=== PATIENT | male | born 1950 | race Caucasian/White ===

== ENCOUNTER 2017-10-13 23:14 | Inpatient (IN) | payer MEDICARE, OTHER ==
[~2017-10-13] VITALS: Ht 172.7 cm; Wt 110.4 kg
--- NOTE | 2017-10-13 23:23 | ED.ADGEN ---
Past History Past Medical History: Anxiety, Dementia, Depression, Hypertension, Other Past Surgical History: Other Adult General Chief Complaint Chief Complaint ".. I just woke up this way... ".. " We were up here baby setting the dogs.. while my daughter and Son in law took a weekend vacation to [place]...".. " I had a previous episode where I had very low blood pressure and slow heart rate.. I got admitted that time too.. The heart doctor started me Coumadin.. and they later changed it to Eliquis.. ".. " But I ve not had any more problems like this .. until tonight..." HPI HPI Patient is a 67 year old male who presents with above hx and complaints of confusion, bradycardia- 40-50, slurred speech and hypotension systolic 80.. Pt. had been watching TV with his and they both fell asleep on couch. noticed when she woke up the was bent over, sleeping in an "un natural position".. and could not wake him up. noted he had slurred speech when sheetrock applicator got him wake up. Pt has multiple meds which he takes for PTSD. Pt in past has followed at [facility]. Pt. does not think he messed up taking his meds or accidently took his pain meds. Pt. denies ETOH. No hx of trauma. Pt recent travel from [facility]. No specific ill contacts. Paramedics report on arrival pt was hypotensive at 80 systolic, bradycardic and had slurred speech. Blood glucose was above 100. Pt. recent traveled here from [place]. Last know well time or without slurred speech was at 2000 hrs. No hx of trauma. No changes in meds. Somewhat poor historian as to why Cardiology started him on Coumadin then Eliquis. Review of Systems Review of Systems Constitutional: Denies fever or chills [] Eyes: Denies change in visual acuity, redness, or eye pain [] HENT: Denies nasal congestion or sore throat [] Complaints of slurred speech. Respiratory: Denies cough or shortness of breath [] Cardiovascular: No additional information not addressed in HPI [] GI: Denies abdominal pain, nausea, vomiting, bloody stools or diarrhea [] : Denies dysuria or hematuria [] Musculoskeletal: Denies back pain or joint pain [] Integument: Denies rash or skin lesions [] Neurologic: Denies headache, focal weakness or sensory changes []Slurred speech complaint. Endocrine: Denies polyuria or polydipsia [] All other systems were reviewed and found to be within normal limits, except as documented in this note. Family History Family History Non-contributory Current Medications Current Medications Current Medications Medications (Trade) Dose Ordered Sig/Renard Start Time Stop Time Status Last Admin Dose Admin Aspirin (Children'S Aspirin) 324 mg 1X ONCE 10/14/17 01:00 10/14/17 01:01 DC 10/14/17 01:11 324 MG Enoxaparin Sodium (Lovenox 100mg Syringe) 100 mg 1X ONCE 10/14/17 01:00 10/14/17 01:01 DC Ondansetron HCl (Zofran) 4 mg PRN Q4HRS PRN 10/14/17 00:45 10/15/17 00:44 Potassium Chloride (KCl Oral Soln) 40 meq 1X ONCE 10/14/17 01:00 10/14/17 01:01 DC 10/14/17 01:10 40 MEQ See Nursing for home meds Allergies Allergies Allergies Coded Allergies Type Severity Reaction Last Updated Verified No Known Drug Allergies 10/14/17 No NKDA Physical Exam Physical Exam Constitutional: no acute distress, non-toxic appearance. [] HENT: Normocephalic, atraumatic, bilateral external ears normal, oropharynx moist, no oral exudates, nose normal. [] Eyes: PERRLA, EOMI, conjunctiva normal, no discharge. [] Neck: Normal range of motion, no tenderness, supple, no stridor. [] Cardiovascular:Bradycardia Heart rate regular rhythm, no murmur []Rates in 50' on monitor. Lungs & Thorax: Bilateral breath sounds clear to auscultation [] Abdomen: Bowel sounds normal, soft, no tenderness, no masses, no pulsatile masses. [] Obese. Scar Skin: Warm, dry, no erythema, no rash. [] Back: No tenderness, no CVA tenderness. [] Extremities: No tenderness, no cyanosis, no clubbing, ROM intact, no edema. [] Neurologic: Alert and oriented X 3, normal motor function, normal sensory function, no focal deficits noted. []Mild slurred speech. Psychologic: Affect normal, judgement normal, mood normal. [] Current Patient Data Vital Signs Vital Signs Date Time Temp Pulse Resp B/P (MAP) Pulse Ox O2 Delivery O2 Flow Rate FiO2 10/14/17 00:55 59 18 101/49 (66) 93 Room Air 10/13/17 23:14 98.7 Lab Results Laboratory Tests Test 10/13/17 23:30 10/13/17 23:59 White Blood Count 5.5 x10^3/uL (4.0-11.0) Red Blood Count 4.46 x10^6/uL (4.30-5.70) Hemoglobin 14.6 g/dL (13.0-17.5) Hematocrit 42.2 % (39.0-53.0) Mean Corpuscular Volume 95 fL (79-100) Mean Corpuscular Hemoglobin 33 pg (25-35) Mean Corpuscular Hemoglobin Concent 35 g/dL (31-37) Red Cell Distribution Width 13.8 % (11.5-14.5) Platelet Count 149 x10^3/uL (140-400) Neutrophils (%) (Auto) 57 % (31-73) Lymphocytes (%) (Auto) 31 % (24-48) Monocytes (%) (Auto) 10 % (0-9) H Eosinophils (%) (Auto) 2 % (0-3) Basophils (%) (Auto) 0 % (0-3) Neutrophils # (Auto) 3.1 x10^3uL (1.8-7.7) Lymphocytes # (Auto) 1.7 x10^3/uL (1.0-4.8) Monocytes # (Auto) 0.5 x10^3/uL (0.0-1.1) Eosinophils # (Auto) 0.1 x10^3/uL (0.0-0.7) Basophils # (Auto) 0.0 x10^3/uL (0.0-0.2) Erythrocyte Sedimentation Rate 2 (0-15) Prothrombin Time 11.1 SEC (9.4-11.4) Prothrombin Time INR 1.1 (0.9-1.1) PTT 23 SEC (23-33) Sodium Level 138 mmol/L (136-145) Potassium Level 3.2 mmol/L (3.5-5.1) L Chloride Level 99 mmol/L (98-107) Carbon Dioxide Level 33 mmol/L (21-32) H Anion Gap 6 (6-14) Blood Urea Nitrogen 17 mg/dL (8-26) Creatinine 1.8 mg/dL (0.7-1.3) H Estimated GFR (Cockcroft-Gault) 37.6 Glucose Level 79 mg/dL (70-99) Calcium Level 8.8 mg/dL (8.5-10.1) Magnesium Level 1.9 mg/dL (1.8-2.4) Ammonia 32 mcmol/L (11-34) Creatine Kinase 180 U/L (39-308) Creatine Kinase MB (Mass) 2.8 ng/mL (0.0-3.6) Creatine Kinase MB Relative Index 1.6 % (0-4) Troponin I Quantitative < 0.017 ng/mL (0-0.055) DE-Bdz-L-Type Natriuretic Peptide 378 pg/mL (0-124) H Lactic Acid Level 1.8 mmol/L (0.4-2.0) EKG EKG My interpretation EKG shows a sinus bradycardia 53 bpm. Has prolonged [place] interval. There is a right bundle-branch block. But no findings acute STEMI of contralateral changes.[] Radiology/Procedures Radiology/Procedures My interpretation of CT head show s no shift, mass, edema, bleed or fx. Has chronic white matter changes and atrophy. My interpretation of CXR shows cardiomegaly. Chronic changes.[] Course & Med Decision Making Course & Med Decision Making Pertinent Labs and Imaging studies reviewed. (See chart for details) Discussed presentation, testing and tx. plan with Dr. Price. Pt. to be admitted to Dr. Price - for further eval and tx. [] Final Impression Final Impression 1. Mental Status Change[]- Hx of Slurred Speech 2. Hypotension 3. Bradycardia 4. Hx. of Dementia ? Hx. - Marked Short term memory problems. 5. Hx of Sleep Apnea 6. Elevated Creat. 1,8 7. Elevated BNP 378 8. Hypokalemia Dragon Disclaimer Dragon Disclaimer This electronic medical record was generated, in whole or in part, using a voice recognition dictation system. DAVID GARCIA MD Oct 13, 2017 23:23
[2017-10-13 23:59] LABS: BASO % 0 % (0-3); EOS # 0.1 x10^3/uL (0.0-0.7); EOS % 2 % (0-3); HEMATOCRIT 42.2 % (39.0-53.0); HEMOGLOBIN 14.6 g/dL (13.0-17.5); LYMPH # 1.7 x10^3/uL (1.0-4.8); LYMPH % 31 % (24-48); MEAN CORPUSCULAR HEMOGLOBIN 33 pg (25-35); MEAN CORPUSCULAR HGB CONC 35 g/dL (31-37); MEAN CORPUSCULAR VOLUME 95 fL (79-100); MONO # 0.5 x10^3/uL (0.0-1.1); MONO % 10 % (0-9); NEUT # 3.1 x10^3uL (1.8-7.7); NEUT % 57 % (31-73); PLATELET COUNT 149 x10^3/uL (140-400); RED BLOOD COUNT 4.46 x10^6/uL (4.30-5.70); RED CELL DISTRIBUTION WIDTH 13.8 % (11.5-14.5); WHITE BLOOD COUNT 5.5 x10^3/uL (4.0-11.0)
--- NOTE | 2017-10-14 00:16 | RAD ---
RS Compliance Statement: One or more of the following individualized dose reduction techniques were utilized for this examination: 1. Automated exposure control 2. Adjustment of the mA and/or kV according to patient size 3. Use of iterative reconstruction technique CT HEAD WITHOUT CONTRAST History: Mental status change Comparison: None. Procedure: Axial images are obtained of the head from the skull base through the vertex without IV contrast. Findings: The ventricles and sulci are normal for the patient's age. No mass-effect, midline shift, hemorrhage, extra-axial fluid collection, or obvious acute infarction is identified. Basilar cisterns are patent. Bone windows demonstrate no acute calvarial abnormality. Medial deviation of the right lamina papyracea may be congenital or due to old fracture. The visualized paranasal sinuses are clear. Mastoid air cells are well aerated. IMPRESSION: No acute intracranial abnormality. Electronically signed by: Fortunato Calvillo MD (10/14/2017 12:13 AM) [facility]
[2017-10-14 00:19] LABS: CALCIUM 8.8 mg/dL (8.5-10.1); CREATININE 1.8 mg/dL (0.7-1.3); GFR 37.6; MAGNESIUM 1.9 mg/dL (1.8-2.4); POTASSIUM 3.2 mmol/L (3.5-5.1)
[2017-10-14] MEDS ORDERED: ONDANSETRON PF 4 MG/2 ML VIAL. IV PRN (00:45)
[2017-10-14 00:54] LABS: SEDIMENTATION RATE 2 (0-15)
[2017-10-14] MEDS ORDERED: ENOXAPARIN ** NOTE DOSE ** SYRINGE SQ ONE (01:00)
[2017-10-14] MEDS ORDERED: POTASSIUM CHLORIDE 20 MEQ/15 ML ORAL LIQUID. PO ONE (01:00)
[2017-10-14] MEDS ORDERED: ASPIRIN 81 MG TAB.CHEW PO ONE (01:00)
--- NOTE | 2017-10-14 01:13 | RAD ---
PORTABLE CHEST 1V Clinical Indication: Mental status change Comparison: None. Findings: The cardiomediastinal silhouette is normal. Lungs are clear. There is no pneumothorax. No pleural effusion is appreciated. No acute bone abnormality. IMPRESSION: No acute cardiopulmonary process. Electronically signed by: Fortunato Calvillo MD (10/14/2017 1:10 AM) [facility]
--- NOTE | 2017-10-14 01:15 | EKG ---
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
[2017-10-14 02:19] VITALS: BP 132/73
[2017-10-14] MEDS ORDERED: INDO25CA5 PO (03:28)
[2017-10-14] MEDS ORDERED: OXCA300T PO (03:28)
[2017-10-14] MEDS ORDERED: MEMA10TA PO (03:28)
[2017-10-14] MEDS ORDERED: SIMV40TA3 PO (03:28)
[2017-10-14] MEDS ORDERED: ALLO300T PO (03:28)
[2017-10-14] MEDS ORDERED: APIX5TAB3 PO (03:28)
[2017-10-14] MEDS ORDERED: FURO20TA3 PO (03:28)
[2017-10-14] MEDS ORDERED: CLON2TAB9 PO (03:28)
[2017-10-14] MEDS ORDERED: SULI200T2 PO (03:28)
[2017-10-14] MEDS ORDERED: FENO200C PO (03:28)
[2017-10-14] MEDS ORDERED: DOXE50CA PO (03:28)
[2017-10-14] MEDS ORDERED: METO50TA6 PO (03:28)
[2017-10-14 05:52] VITALS: BP 133/79
[2017-10-14] MEDS ORDERED: ENOXAPARIN ** NOTE DOSE ** SYRINGE SQ SCH (09:00)
--- NOTE | 2017-10-14 09:55 | CONS ---
DATE OF CONSULTATION: 10/14/2017 REASON FOR CONSULTATION: Bradycardia and syncope. HISTORY OF PRESENT ILLNESS: The patient is a 67-year-old man with presumed past medical history as noted below, is unable to provide a clear history of his medical problems, but who presented because of slurred speech and a syncopal episode. He apparently was watching TV with his and was noted to be slouched over. Upon arrival by the EMS, he had a blood pressure in the 80s systolic and heart rate in the 40s-50s. He apparently also had some slurred speech. The patient denied any preceding palpitations, orthopnea, PND, chest pain, palpitations, or any exertional dyspnea baseline. By history, he also has apparently some mild dementia, which is unclear at this time. 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 ER evaluation did not reveal any acute pathology. He was admitted for further evaluation and treatment. Neurology consultation is currently pending. PAST MEDICAL HISTORY: 1. Presumed atrial fibrillation. 2. Presumed diastolic heart failure. 3. Presumed hypertension. 4. Dyslipidemia. SOCIAL HISTORY: The patient denies any alcohol, tobacco, or illicit drug use. He is . He is here visiting from [place] for his son-in-law's mcc from the service. FAMILY HISTORY: Noncontributory. ALLERGIES: No known drug allergies. CURRENT CARDIOVASCULAR MEDICATIONS: 1. Eliquis 5 mg p.o. b.i.d. 2. Lasix 20 mg daily. 3. Metoprolol 50 mg p.o. b.i.d. 4. Simvastatin 40 mg daily. 5. Micardis 80/25 one tablet daily. REVIEW OF SYSTEMS: Negative for 10 out of 14 systems reviewed, unless otherwise mentioned above in HPI. PHYSICAL EXAMINATION: VITAL SIGNS: Afebrile, heart rate 66, blood pressure 133/79. GENERAL: He is alert and oriented, in no acute distress. HEAD AND NECK: Unremarkable. HEART: Regular rate and rhythm without murmurs, rubs, or gallops. LUNGS: Clear to auscultation bilaterally. ABDOMEN: Obese, nontender, nondistended. EXTREMITIES: No clubbing, cyanosis, or edema with 1+ dorsalis pedis and 2+ radial pulses. DIAGNOSTIC STUDIES: Hemoglobin, platelets, cardiac enzymes are negative. BNP is unremarkable. Creatinine is elevated at 1.8, but the patient does report that he does have some element of chronic kidney disease and does see somebody regularly for his kidney issues. Head CT is notable for no acute abnormalities. Chest x-ray does not have any acute pathology. EKG demonstrates sinus rhythm per report, but is not available for review. IMPRESSION: Syncope: Differential diagnosis is broad, but no obvious cardiac structural pathology is noted based on his history and physical examination. Possibilities include medication side effects and due to his bradycardia and hypotension could be precipitated by metoprolol. Arrhythmia is also a possibility. 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 Subsequent to that, we will await neurologic evaluation and we will obtain an echocardiogram tomorrow morning to rule out any significant pathology. Continue telemetry to evaluate for any arrhythmias. Hold his metoprolol. Thank you for this consultation. YOANDY SOTOMAYOR MD DR: GARRETT/nikolay JOB#: [id number] / [id number]
[2017-10-14 10:03] LABS: BARBITURATES NEG (NEG); BENZODIAZEPINES POS (NEG); CANNABINOIDS NEG (NEG); COCAINE NEG (NEG); METHADONE NEG (NEG); OPIATES NEG (NEG); PHENCYCLIDINE NEG (NEG)
[2017-10-14 10:04] LABS: AMPHETAMINE/METHAMPHETAMINE NEG (NEG)
[2017-10-14 10:09] LABS: BILIRUBIN,URINE NEG (NEG); CLARITY,URINE CLEAR; COLOR,URINE YELLOW; GLUCOSE,URINE NEG (NEG); UROBILINOGEN,URINE 1 mg/dL (0.2 mg/dL)
[2017-10-14 10:10] LABS: AMORPHOUS SEDIMENT,UR PRESENT /HPF; BACTERIA,URINE 0 /HPF (0-FEW); HYALINE CASTS, URINE OCC /HPF; NITRITE,URINE NEG (NEG); RBC,URINE RARE /HPF (0-2); SQUAMOUS EPITHELIAL CELL,UR OCC /LPF
[2017-10-14 11:00] VITALS: BP 142/81
[2017-10-14] MEDS ORDERED: METO25TA4 PO (11:11)
[2017-10-14 12:22] LABS: ALBUMIN 3.4 g/dL (3.4-5.0); ALBUMIN/GLOBULIN RATIO 1.2 (1.0-1.7); CALCIUM 8.8 mg/dL (8.5-10.1); CREATININE 1.5 mg/dL (0.7-1.3); GFR 46.4; POTASSIUM 3.7 mmol/L (3.5-5.1); TOTAL BILIRUBIN 0.4 mg/dL (0.2-1.0); TOTAL PROTEIN 6.2 g/dL (6.4-8.2); URIC ACID 5.7 mg/dL (3.5-7.2)
--- NOTE | 2017-10-14 13:12 | HP ---
ADMIT DATE: 10/14/2017 HISTORY OF PRESENT ILLNESS: The patient is a 67-year-old male patient, who came from [place], [place], coming here to visit his daughter and apparently, has had an episode, who was admitted with altered mental status. Apparently, the patient has been watching TV with his and they both fell asleep on the couch. noticed when she woke up that he was bent over sleeping in a natural position and she could not wake him up. noted that he had slurred speech when immersion metal cleaner got him wake up and has multiple medications, which he takes for posttraumatic stress disorder and normally follows at the [facility]. He does not think he messed up taking his medication or accidentally took his pain medication. He denied any alcohol intake. He denied any history of trauma. He has traveled recently from [place] with no specific ill contact. Paramedics reported on arrival that the patient was hypertensive at a systolic blood pressure of 80, bradycardic, had slurred speech, blood glucose was above 100, the last known well time without slurred speech, was at 10 o'clock. No history of trauma or change in medication. 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 PAST MEDICAL HISTORY: Significant for hypertension, hyperlipidemia, chronic kidney disease, atrial fibrillation, morbid obesity, obstructive sleep apnea, anxiety, depression and posttraumatic stress disorder, has also severe sensorineural deafness, and bilateral cataracts. PAST SURGICAL HISTORY: Significant for bilateral cataract extraction with intraocular implants, tonsillectomy, left knee arthroscopic surgery, has had also a colonoscopy. ALLERGIES: He apparently has no known drug allergies. MEDICATIONS: He is currently on following medications. He is on apixaban 5 mg once a day, fenofibrate 200 mg daily, simvastatin 40 mg at bedtime, metoprolol tartrate 25 mg twice a day, indomethacin 25 mg daily and sulindac 200 mg twice a day with meals. He is on clonazepam 2 mg twice a day, oxcarbazepine 600 mg twice a day, doxepin 50 mg 2 capsules at bedtime, Namenda 10 mg p.o. b.i.d., furosemide 20 mg weekly and allopurinol 300 mg twice a day after meals. FAMILY HISTORY: He has 2 brothers and 1 sister younger, one older brother at age of 38 because of alcoholism. Both parents are , but he does not know the age of the and why the cause of their . SOCIAL HISTORY: He is , has 1 daughter. He is an ex-smoker, quit smoking 4 years ago. He used to smoke one and half pack a day since he was 15 years old. He quit drinking alcohol about 4-5 years ago. 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 REVIEW OF SYSTEMS: The patient denied any blurring of vision. He has bilateral cataract extraction, intraocular implant. He denied any glaucoma or macular degeneration. He has bilateral sensorineural deafness. He has a hearing aid. He denied any stuffy nose, nosebleed or postnasal drip. He denied any sore throat, sore tongue, toothache, hoarseness of voice or difficulty swallowing. He denied any nausea, vomiting, diarrhea or constipation. He denied any hematemesis, melena or hematochezia. He denied any dysuria, frequency or hematuria. He denied any chest pain, shortness of breath, orthopnea, paroxysmal nocturnal dyspnea. He does complain of exertional dyspnea. He apparently is known to have obstructive sleep apnea, on CPAP machine that has been using for the last 3 months. PHYSICAL EXAMINATION: GENERAL: On arrival to the Emergency Room, he apparently was alert, oriented, somewhat has mild slurring of speech; however, there was no pallor, jaundice or cyanosis. No lymphadenopathy, no thyromegaly. No jugular venous distention. No lower limb edema. VITAL SIGNS: His heart rate was 56, blood pressure is 104/55, temperature was 98.7, respiratory rate was 18 and oxygen saturation was 96% on room air. HEAD, EYES, EARS, NOSE, AND THROAT: Showed normocephalic, atraumatic. NECK: Supple. HEART: Showed normal first and second heart sounds with no gallop or murmur. CHEST: Clear to auscultation. No crepitation or rhonchi. ABDOMEN: Distended, soft, and nontender. No guarding or rigidity. No organomegaly. Hernial orifices intact. Bowel sounds normal. NEUROLOGIC: He was apparently somewhat lethargic with a slurred speech, but without any motor or sensory deficit. He was able to move all extremities without difficulty. LABORATORY DATA: On arrival showed a white cell count 5500, hemoglobin 14.6, hematocrit 42, MCV 95 and platelet count of 149,000 with normal manual differential. His chemistry showed a serum sodium 138, potassium 3.2, chloride 99, bicarbonate 33, anion gap of 6, BUN 17, creatinine 1.8, estimated GFR was 37 mL per minute. His lactic acid was 1.8, calcium was 8.8, and magnesium was 1.9. His ammonia was 32. CK was 180 and with natriuretic peptide was 378. His prothrombin time was 11.1, INR of 1.1, aPTT was 23. His urinalysis showed the urine was yellow, clear with a pH of 6.5, specific gravity of 1.025. There is small amount of protein. The urine was negative for glucose, ketones, blood, nitrite and leukocyte esterase. There are rare rbc's, 1-4 wbc's, no bacteria. His toxic screen was positive for benzodiazepine, negative for opiates, methadone, barbiturates, phencyclidine, amphetamine, methamphetamine, cocaine, cannabinoids and ethyl alcohol. His imaging studies showed that his CT scan of the head showed that the ventricles and sulci are normal for the patient's age. No mass effect, midline shift, hemorrhage, or extraaxial fluid collection or obvious acute infarction is identified. Basilar cisterns are patent. Bone windows demonstrate no acute calvarial abnormality. Medial deviation of the right lamina papyracea may be congenital or due to old fracture. The visualized paranasal sinuses are clear. Mastoid air cells are well aerated. His chest x-ray showed that the cardiomediastinal silhouette is normal. Lungs are clear. There is no pneumothorax, no pleural effusion is appreciated. No acute bony abnormality. ASSESSMENT AND PLAN: In summary, this is a 67-year-old male patient, who was admitted with altered mental status. Apparently, he was unresponsive at home and sleeping in awkward position. When he woke up, he had slurred speech. His blood sugar was normal at the time when he was seen by the ambulance team. His lab work showed that he has hypokalemia and his serum creatinine is elevated. He was hypotensive and bradycardic. He is known to have obstructive sleep apnea on CPAP and apparently he has dementia as he is orally on Namenda. He has also anxiety and depression together with posttraumatic stress disorder. My plan is to replenish his potassium and I will consult Dr. Bernal. Repeat all his lab work and decide on further management accordingly. We will arrange for him to have bilateral carotid Doppler ultrasound and we have already requested records from [facility] in [place], [place]. DONALDO OTOOLE MD DR: DIGNA/nikolay JOB#: [id number] / [id number]
--- NOTE | 2017-10-14 13:13 | RAD ---
EXAM: Carotid Doppler sonogram. HISTORY: Altered mental status. TECHNIQUE: Thompson scale and color Doppler sonographic evaluation of the neck with spectral waveform analysis was performed and static images are submitted for review. FINDINGS: The peak systolic velocity within the right common carotid artery is 77 cm/sec. The peak systolic velocity within the right internal carotid artery is 69 cm/sec and the end diastolic velocity within the right internal carotid artery is 16 cm/sec. The right ICA/CCA ratio is 1.0. The peak systolic velocity within the left common carotid artery is 86 cm/sec. The peak systolic velocity within the left internal carotid artery is 60 cm/sec and the end diastolic velocity within the left internal carotid artery is 20 cm/sec. The left ICA/CCA ratio is 0.76. There is normal antegrade flow within both vertebral arteries. IMPRESSION: No Doppler evidence of hemodynamically significant stenosis within the carotid or vertebral arteries. PQRS Compliance Statement - Stenosis calculations for CT, MR and conventional angiography are based upon measurement of the distal ICA diameter in accordance with the NASCET methodology. Stenosis calculations for carotid ultrasound studies are derived from validated velocity criteria which are known to correlate with the NASCET methodology. Electronically signed by: Tori Bocanegra MD (10/14/2017 1:10 PM) [facility]
[2017-10-14 15:00] VITALS: BP 155/78
[2017-10-14] MEDS: ASPIRIN 81 MG TAB.CHEW PO SCH (18:08)
[2017-10-14 19:19] VITALS: BP 171/80
[2017-10-14] MEDS: clonazePAM 2 MG TABLET PO SCH (19:55)
[2017-10-14] MEDS: MEMANTINE 10 MG TABLET. PO SCH (19:55)
[2017-10-14] MEDS: APIXABAN 5 MG TABLET. PO SCH (19:55)
[2017-10-14] MEDS ORDERED: SIMVASTATIN 40 MG TABLET. PO SCH (21:00)
[2017-10-14] MEDS ORDERED: DOXEPIN HCL 25 MG CAPSULE PO SCH (21:00)
[2017-10-14 22:23] VITALS: BP 145/70
[2017-10-15 05:26] VITALS: BP 166/81
[2017-10-15 06:18] LABS: BASO % 0 % (0-3); EOS # 0.1 x10^3/uL (0.0-0.7); EOS % 3 % (0-3); HEMATOCRIT 41.1 % (39.0-53.0); HEMOGLOBIN 14.1 g/dL (13.0-17.5); LYMPH # 1.5 x10^3/uL (1.0-4.8); LYMPH % 45 % (24-48); MEAN CORPUSCULAR HEMOGLOBIN 33 pg (25-35); MEAN CORPUSCULAR HGB CONC 34 g/dL (31-37); MEAN CORPUSCULAR VOLUME 95 fL (79-100); MONO # 0.3 x10^3/uL (0.0-1.1); MONO % 9 % (0-9); NEUT # 1.5 x10^3uL (1.8-7.7); NEUT % 43 % (31-73); PLATELET COUNT 121 x10^3/uL (140-400); RED BLOOD COUNT 4.31 x10^6/uL (4.30-5.70); RED CELL DISTRIBUTION WIDTH 14.3 % (11.5-14.5); WHITE BLOOD COUNT 3.4 x10^3/uL (4.0-11.0)
[2017-10-15 06:27] LABS: ALBUMIN 3.2 g/dL (3.4-5.0); ALBUMIN/GLOBULIN RATIO 1.2 (1.0-1.7); CALCIUM 8.3 mg/dL (8.5-10.1); CREATININE 1.1 mg/dL (0.7-1.3); GFR 66.4; POTASSIUM 3.9 mmol/L (3.5-5.1); TOTAL BILIRUBIN 0.4 mg/dL (0.2-1.0); TOTAL PROTEIN 5.8 g/dL (6.4-8.2)
[2017-10-15] MEDS: ASPIRIN 81 MG TAB.CHEW PO SCH (08:47)
[2017-10-15] MEDS: clonazePAM 2 MG TABLET PO SCH (08:47)
[2017-10-15] MEDS: APIXABAN 5 MG TABLET. PO SCH (08:47)
[2017-10-15] MEDS: MEMANTINE 10 MG TABLET. PO SCH (08:47)
[2017-10-15] MEDS ORDERED: APIXABAN 5 MG TABLET. PO SCH (09:00)
[2017-10-15] MEDS ORDERED: FENOFIBRATE NANOCRYSTALLIZED 145 MG TABLET PO SCH (09:00)
--- NOTE | 2017-10-15 09:32 | CONS ---
DATE OF CONSULTATION: 10/14/2017 NEUROLOGY CONSULTATION REFERRING PHYSICIAN: Dr. Price. REASON FOR CONSULTATION: Mental status changes. HISTORY OF PRESENT ILLNESS: This is a 67-year-old right-handed male, who was admitted through Emergency Room last night after he presented with sudden onset of mental status changes. According to his daughter, the patient has had a history of dementia and paroxysmal atrial fibrillation, depression and anxiety disorders. He initially lives in [place], but he comes over weekends to spend a week with his daughter and son-in-law, who were on vacation. Last night, the patient was found by his lying down sleeping in awkward position. She could not wake him up. EMS was activated. When they came in and woke him up, they found the systolic blood pressure was very low at 80 with a heart rate between 40 and 50. The patient was somewhat confused. His blood sugar at the scene was 100. The patient stated he had a similar episode a few years back when blood pressure and heart rate dropped dramatically without any apparent reason. He has been seen by a inventory and pricing associate in [place], and he was placed on warfarin and then on Eliquis for possible paroxysmal atrial fibrillation. The patient has been on Eliquis for the last 8 months. In the Emergency Room, the patient was found to be alert, in no apparent injuries. His initial nonenhanced head CT scan revealed no evidence of acute intracranial process. He was seen this morning by a inventory and pricing associate and a carotid Doppler study has been ordered and the result is pending. PAST MEDICAL HISTORY: Significant for possible cardiac arrhythmia - atrial fibrillations, hyperlipidemia, hypertension, GERD, arthritis, gout, posttraumatic stress disorders, and possible bipolar disorder. PAST SURGICAL HISTORY: Significant for hernia repair. CURRENT MEDICATIONS: Allopurinol 300 mg p.o. daily, TriCor 145 mg daily, Eliquis 5 mg daily, memantine 10 mg twice a day, doxepin 100 mg at bedtime, simvastatin 40 mg at bedtime, Trileptal 600 mg b.i.d., clonazepam 2 mg b.i.d., aspirin 81 mg daily and Zofran 4 mg q.4 hours p.r.n. for nausea. ALLERGIES: No known drug allergies. REVIEW OF SYSTEMS: A 10-point review of system was performed as mentioned above in history of present illness. PHYSICAL EXAMINATION: GENERAL: Obese white male, not in acute distress. He weighs 243 pounds. Not in acute distress. VITAL SIGNS: Blood pressure 133/79, respiratory rate 20, pulse is 58, temperature is 97.4, and oxygen saturation is 98% on 2 liters by nasal cannula. HEENT: Normocephalic and atraumatic, otherwise unremarkable. NECK: Supple. Negative for carotid bruit, lymphadenopathy or thyromegaly. LUNGS: Clear to A and P. CARDIOVASCULAR: Regular rhythm, normal S1, S2. There is no S3, S4 or murmur. ABDOMEN: Soft. Bowel sounds positive. EXTREMITIES: Negative for cyanosis, clubbing, pitting edema. MENTAL STATUS: The patient is alert and oriented x 3. Speech is fluent. There is no language dysfunction. The patient recalls 2/3 immediately and after 1 and 3 minutes. Judgment and abstract thinking are fair. The patient denies hallucination or delusion. CRANIAL NERVES: Visual [place] are full. The pupils are reactive to light and accommodation. The extraocular movements are intact. There is no nystagmus. There is no facial motor or sensory deficit. Hearing is intact bilaterally. The palate is elevated symmetrically. Sternocleidomastoid muscles are powerful bilaterally. The patient shrugs his shoulders symmetrically, protrudes his tongue in the midline without fasciculation or atrophy. MOTOR: No focal muscle bulk was seen. The tone was normal. The strength was 5/5 throughout. SENSORY: Examination revealed normal pinprick, light touch, vibratory and position senses. DEEP TENDON REFLEXES: Symmetric and hypoactive with absent Achilles responses. GAIT AND COORDINATION: Normal. LABORATORY DATA: CBC revealed white blood cells of 5500, hemoglobin 14.6, hematocrit 42.2, and platelet count of 149,000. Chemistry revealed a sodium of 138, potassium 3.7, chloride 102, CO2 of 28, BUN 19, creatinine 1.5, glucose is 126, and calcium 8.8. Liver enzymes slightly elevated. AST is 39 and ALT is 74, with normal cardiac enzymes and troponin level. Elevated ____ at 378. Urinalysis is negative for urinary tract infections. Urine drug screen is positive for benzodiazepine. IMPRESSION AND PLAN: 1. Acute mental status changes - improved, etiology uncertain, rule out syncope versus transient ischemic attack. 2. History of paroxysmal atrial fibrillation. 3. Multiple medical problems include hypertension, hyperlipidemia, posttraumatic stress disorders and possible bipolar disorder, mild dementia and gout. 4. Normal neurological examination at this time. Recommendation will continue with current management and home medication. 5. Await for carotid Doppler study. M Laurence CASTILLO MD DR: RITA/nikolay JOB#: [id number] / [id number]
--- NOTE | 2017-10-15 10:14 | PDOC ---
PROGRESS NOTES Diagnosis Problem Problems Medical Problems: (1) Mental status change resolved Status: Acute Assessment Problems Medical Problems: (1) Mental status change resolved Status: Acute 1. Syncope/mental status change - no reoccurrence. No significant arrhythmias. Blood pressure currently moderately elevated. Await echo and carotid duplex. 2. hypertension - blood pressure now moderately elevated. check orthostatics and resume antihypertensives at half dose if no significant drops. 3. presumed atrial fibrillation - remains sinus rhythm, continue Apixaban, Off metoprolol due to bradycardia. Suggest outpatient event monitoring. await echocardiogram. 4. hyperlipidemia - resume statin, check lipids. Subjective denies lightheadedness, palpitations, fatigue, chest pain or dyspnea. no syncope. Objective tele - sinus rhythm with occasional isolated PVCs. Vital Signs Date Time Temp Pulse Resp B/P (MAP) Pulse Ox O2 Delivery O2 Flow Rate FiO2 10/15/17 08:00 Room Air 2.0 10/15/17 05:26 99.7 66 24 166/81 (109) 98 Intake and Output 10/15/17 07:00 Intake Total 360 ml Balance 360 ml Intake Oral 360 ml # Voids 6 Abdomen: Normal bowel sounds, Soft, No tenderness Heart: Regular rate, Normal S1, Normal S2, Other (no gallops, clicks or rubs) Extremities: No cyanosis, No edema, Normal pulses General: Alert, Oriented X3, Cooperative, No acute distress HEENT: Atraumatic, EOMI, Mucous membr. moist/pink Lungs: Clear to auscultation, Normal air movement Neuro: Normal speech, Strength at 5/5 X4 ext Psych/Mental Status: Mental status NL, Mood NL Review of Relevant I have reviewed the following items dave (where applicable) has been applied. Labs Laboratory Tests Test 10/13/17 23:30 10/13/17 23:59 10/14/17 09:45 10/14/17 12:03 White Blood Count 5.5 x10^3/uL (4.0-11.0) Red Blood Count 4.46 x10^6/uL (4.30-5.70) Hemoglobin 14.6 g/dL (13.0-17.5) Hematocrit 42.2 % (39.0-53.0) Mean Corpuscular Volume 95 fL (79-100) Mean Corpuscular Hemoglobin 33 pg (25-35) Mean Corpuscular Hemoglobin Concent 35 g/dL (31-37) Red Cell Distribution Width 13.8 % (11.5-14.5) Platelet Count 149 x10^3/uL (140-400) Neutrophils (%) (Auto) 57 % (31-73) Lymphocytes (%) (Auto) 31 % (24-48) Monocytes (%) (Auto) 10 % (0-9) Eosinophils (%) (Auto) 2 % (0-3) Basophils (%) (Auto) 0 % (0-3) Neutrophils # (Auto) 3.1 x10^3uL (1.8-7.7) Lymphocytes # (Auto) 1.7 x10^3/uL (1.0-4.8) Monocytes # (Auto) 0.5 x10^3/uL (0.0-1.1) Eosinophils # (Auto) 0.1 x10^3/uL (0.0-0.7) Basophils # (Auto) 0.0 x10^3/uL (0.0-0.2) Erythrocyte Sedimentation Rate 2 (0-15) Prothrombin Time 11.1 SEC (9.4-11.4) Prothromb Time International Ratio 1.1 (0.9-1.1) Activated Partial Thromboplast Time 23 SEC (23-33) Sodium Level 138 mmol/L (136-145) 138 mmol/L (136-145) Potassium Level 3.2 mmol/L (3.5-5.1) 3.7 mmol/L (3.5-5.1) Chloride Level 99 mmol/L (98-107) 102 mmol/L (98-107) Carbon Dioxide Level 33 mmol/L (21-32) 28 mmol/L (21-32) Anion Gap 6 (6-14) 8 (6-14) Blood Urea Nitrogen 17 mg/dL (8-26) 19 mg/dL (8-26) Creatinine 1.8 mg/dL (0.7-1.3) 1.5 mg/dL (0.7-1.3) Estimated GFR (Cockcroft-Gault) 37.6 46.4 Glucose Level 79 mg/dL (70-99) 126 mg/dL (70-99) Calcium Level 8.8 mg/dL (8.5-10.1) 8.8 mg/dL (8.5-10.1) Magnesium Level 1.9 mg/dL (1.8-2.4) Ammonia 32 mcmol/L (11-34) Creatine Kinase 180 U/L (39-308) Creatine Kinase MB (Mass) 2.8 ng/mL (0.0-3.6) Creatine Kinase MB Relative Index 1.6 % (0-4) Troponin I Quantitative < 0.017 ng/mL (0-0.055) JV-[id number]-Type Natriuretic Peptide 378 pg/mL (0-124) Lactic Acid Level 1.8 mmol/L (0.4-2.0) Urine Collection Type Unknown Urine Color Yellow Urine Clarity Clear Urine pH 6.5 Urine Specific [place] 1.025 Urine Protein 30 mg/dl (NEG-TRACE) Urine Glucose (UA) Neg mg/dL (NEG) Urine Ketones (Stick) Neg mg/dL (NEG) Urine Blood Neg (NEG) Urine Nitrite Neg (NEG) Urine Bilirubin Neg (NEG) Urine Urobilinogen Dipstick 1 mg/dL (0.2 mg/dL) Urine Leukocyte Esterase Neg (NEG) Urine RBC Rare /HPF (0-2) Urine WBC 1-4 /HPF (0-4) Urine Squamous Epithelial Cells Occ /LPF Urine Amorphous Sediment Present /HPF Urine Bacteria 0 /HPF (0-FEW) Urine Hyaline Casts Occ /HPF Urine Mucus Marked /LPF Urine Opiates Screen Neg (NEG) Urine Methadone Screen Neg (NEG) Urine Barbiturates Neg (NEG) Urine Phencyclidine Screen Neg (NEG) Urine Amphetamine/Methamphetamine Neg (NEG) Urine Benzodiazepines Screen Pos (NEG) Urine Cocaine Screen Neg (NEG) Urine Cannabinoids Screen Neg (NEG) Urine Ethyl Alcohol Neg (NEG) BUN/Creatinine Ratio 13 (6-20) Uric Acid 5.7 mg/dL (3.5-7.2) Total Bilirubin 0.4 mg/dL (0.2-1.0) Aspartate Amino Transf (AST/SGOT) 39 U/L (15-37) Alanine Aminotransferase (ALT/SGPT) 74 U/L (16-63) Alkaline Phosphatase 89 U/L (46-116) Total Protein 6.2 g/dL (6.4-8.2) Albumin 3.4 g/dL (3.4-5.0) Albumin/Globulin Ratio 1.2 (1.0-1.7) Test 10/15/17 05:57 White Blood Count 3.4 x10^3/uL (4.0-11.0) Red Blood Count 4.31 x10^6/uL (4.30-5.70) Hemoglobin 14.1 g/dL (13.0-17.5) Hematocrit 41.1 % (39.0-53.0) Mean Corpuscular Volume 95 fL (79-100) Mean Corpuscular Hemoglobin 33 pg (25-35) Mean Corpuscular Hemoglobin Concent 34 g/dL (31-37) Red Cell Distribution Width 14.3 % (11.5-14.5) Platelet Count 121 x10^3/uL (140-400) Neutrophils (%) (Auto) 43 % (31-73) Lymphocytes (%) (Auto) 45 % (24-48) Monocytes (%) (Auto) 9 % (0-9) Eosinophils (%) (Auto) 3 % (0-3) Basophils (%) (Auto) 0 % (0-3) Neutrophils # (Auto) 1.5 x10^3uL (1.8-7.7) Lymphocytes # (Auto) 1.5 x10^3/uL (1.0-4.8) Monocytes # (Auto) 0.3 x10^3/uL (0.0-1.1) Eosinophils # (Auto) 0.1 x10^3/uL (0.0-0.7) Basophils # (Auto) 0.0 x10^3/uL (0.0-0.2) Sodium Level 141 mmol/L (136-145) Potassium Level 3.9 mmol/L (3.5-5.1) Chloride Level 105 mmol/L (98-107) Carbon Dioxide Level 31 mmol/L (21-32) Anion Gap 5 (6-14) Blood Urea Nitrogen 14 mg/dL (8-26) Creatinine 1.1 mg/dL (0.7-1.3) Estimated GFR (Cockcroft-Gault) 66.4 BUN/Creatinine Ratio 13 (6-20) Glucose Level 108 mg/dL (70-99) Calcium Level 8.3 mg/dL (8.5-10.1) Total Bilirubin 0.4 mg/dL (0.2-1.0) Aspartate Amino Transf (AST/SGOT) 36 U/L (15-37) Alanine Aminotransferase (ALT/SGPT) 65 U/L (16-63) Alkaline Phosphatase 74 U/L (46-116) Total Protein 5.8 g/dL (6.4-8.2) Albumin 3.2 g/dL (3.4-5.0) Albumin/Globulin Ratio 1.2 (1.0-1.7) Medications Current Medications Enoxaparin Sodium (Lovenox 100mg Syringe) 100 mg 1X ONCE SQ ; Start 10/14/17 at 01:00; Stop 10/14/17 at 01:01; Status DC Aspirin (Children'S Aspirin) 324 mg 1X ONCE PO Last administered on 10/14/17at 01:11; Start 10/14/17 at 01:00; Stop 10/14/17 at 01:01; Status DC Ondansetron HCl (Zofran) 4 mg PRN Q4HRS PRN IV NAUSEA/VOMITING; Start 10/14/17 at 00:45; Stop 10/15/17 at 00:44; Status DC Aspirin (Children'S Aspirin) 81 mg DAILY PO Last administered on 10/15/17at 08: 47; Start 10/14/17 at 09:00 Enoxaparin Sodium (Lovenox 100mg Syringe) 100 mg BID SQ ; Start 10/14/17 at 09: 00; Stop 10/14/17 at 09:00; Status DC Potassium Chloride (KCl Oral Soln) 40 meq 1X ONCE PO Last administered on 10/14at 01:10; Start 10/14/17 at 01:00; Stop 10/14/17 at 01:01; Status DC Clonazepam (KlonoPIN) 2 mg BID PO Last administered on 10/15/17at 08:47; Start 10/14/17 at 21:00 Oxcarbazepine (Trileptal) 600 mg BID PO Last administered on 10/15/17at 09:09; Start 10/14/17 at 21:00 Simvastatin (Zocor) 40 mg HS PO Last administered on 10/14/17at 19:55; Start at 21:00 Allopurinol (Zyloprim) 300 mg BIDAFTMEAL PO ; Start 10/15/17 at 18:00 Apixaban (Eliquis) 5 mg DAILY PO ; Start 10/15/17 at 09:00; Stop 10/15/17 at 09: 00; Status DC Doxepin HCl (SINEquan) 100 mg QHS PO Last administered on 10/14/17at 19:56; Start 10/14/17 at 21:00 Fenofibrate (Tricor) 145 mg DAILY PO Last administered on 10/15/17at 08:47; Start 10/15/17 at 09:00 Memantine (Namenda) 10 mg BID PO Last administered on 10/15/17at 08:47; Start at 21:00 Apixaban (Eliquis) 5 mg BID PO Last administered on 10/15/17at 08:47; Start at 21:00 Active Scripts Active Reported Metoprolol Tartrate 25 Mg Tablet 1 Tab PO BID Eliquis (Apixaban) 5 Mg Tablet 5 Mg PO DAILY Clonazepam 2 Mg Tablet 2 Mg PO BID Oxcarbazepine 300 Mg Tablet 600 Mg PO BID Furosemide 20 Mg Tablet 20 Mg PO WEEKLY Indomethacin 25 Mg Capsule 25 Mg PO PRN DAILY Sulindac 200 Mg Tablet 200 Mg PO BIDAFTMEAL Simvastatin 40 Mg Tablet 40 Mg PO HS Namenda (Memantine Hcl) 10 Mg Tablet 10 Mg PO BID Fenofibrate (Fenofibrate,Micronized) 200 Mg Capsule 200 Mg PO DAILY Doxepin Hcl 50 Mg Capsule 2 Cap PO HS Allopurinol 300 Mg Tablet 300 Mg PO BIDAFTMEAL Vitals/I & O Vital Sign - Last 24 Hours 10/14/17 10/14/17 10/14/17 10/14/17 11:00 15:00 19:19 20:14 Temp 98.1 97.6 98.4 Pulse 55 63 72 Resp 24 B/P (MAP) 142/81 (101) 155/78 (103) 171/80 (110) Pulse Ox 93 95 97 O2 Delivery Room Air Nasal Cannula Nasal Cannula Nasal Cannula O2 Flow Rate 2.0 2.0 2.0 10/14/17 10/15/17 10/15/17 22:23 05:26 08:00 Temp 97.7 99.7 Pulse 68 66 Resp 20 24 B/P (MAP) 145/70 (95) 166/81 (109) Pulse Ox 96 98 O2 Delivery Nasal Cannula Nasal Cannula Room Air O2 Flow Rate 2.0 2.0 2.0 Intake and Output 10/14/17 10/14/17 10/15/17 15:00 23:00 07:00 Intake Total 360 ml Balance 360 ml SURJIT VAZQUEZ TRANSFERRER Oct 15, 2017 10:14
[2017-10-15 12:25] VITALS: BP 158/87
[2017-10-15 14:30] VITALS: BP 176/98
[2017-10-15 14:31] VITALS: BP 148/89
[2017-10-15 14:32] VITALS: BP 160/97
[2017-10-15] MEDS ORDERED: ALLOPURINOL 300 MG TABLET. PO SCH (18:00)
--- NOTE | 2017-10-15 18:53 | DS ---
DATE OF DISCHARGE: 10/15/2017 HISTORY OF PRESENT ILLNESS: The patient is a 67-year-old male patient, who is here visiting his daughter from [place] and apparently had an episode of altered mental status as he was found unresponsive, sleeping awkwardly by his . He did have slurred speech and was hypotensive and bradycardic. His heart rate was 40 to 50 and systolic pressure was 80. He was brought to the Emergency Room, was extensively investigated. He was seen in consultation by the cutter apprentice hand as well as the neurologist. His blood count was normal and in fact his white cell count was 5500, hemoglobin 14.6, hematocrit 42 and platelet count of 149. His troponin was normal. He was also slightly dehydrated. 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 He had an echocardiogram done at the end of 2016, which showed that he has normal left ventricular systolic function, normal ejection fraction, he has left ventricular hypertrophy. He remained stable throughout his stay in the hospital. He does have poor short term memory, but otherwise he remained stable. His blood pressure if anything has trended upward as well as his heart rate. PHYSICAL EXAMINATION: GENERAL: When I examined him this afternoon, he was sitting on the edge of the bed comfortably, in no apparent respiratory distress. There is definitely no pallor, jaundice, cyanosis, or thyromegaly. No jugular venous distension. No lower limb edema. VITAL SIGNS: His heart rate was 71, blood pressure was 160/97, temperature was 99, respiratory rate was 24, and oxygen saturation was 97% on 2 liters of oxygen. HEAD, EYES, EARS, NOSE AND THROAT: Showed normocephalic, atraumatic. NECK: Supple. HEART: Showed normal first and second heart sounds with no gallop, rub or murmur. CHEST: Clear to auscultation. No crepitation or rhonchi. ABDOMEN: Distended, soft, nontender. No guarding or rigidity. No organomegaly. Hernial orifice intact. Bowel sounds normal. NEUROLOGICAL: He was awake, alert, responding at times appropriately. He does have short-term memory problem but otherwise he was neurologically intact. He was seen by cutter apprentice hand as well as the neurologist. Bilateral carotid Doppler ultrasound showed no evidence of any hemodynamically significant stenosis. Unfortunately, we did order an echocardiogram that I had to cancel because the patient was inpatient, he wanted to go home and he has a recent echocardiogram that showed he has normal left ventricular systolic function. LABORATORY DATA: His lab work this morning showed a white cell count of 3400, hemoglobin 14, hematocrit 41, MCV 95, and platelet count of 121,000. Serum sodium was 141, potassium 3.9, chloride 105, bicarbonate 31, anion gap of 5, BUN 14, creatinine 1.1, estimated GFR was 66 mL per minute, his glucose 108, and calcium was 8.3. Total bilirubin, AST, ALT, and alkaline phosphatase were normal. His total protein was 5.8, albumin 3.2. His prothrombin time was 11.1, INR of 1.1, and aPTT was 23. Urinalysis was unremarkable, and urine toxicology screen was essentially negative and was positive for benzodiazepine. DISCHARGE MEDICATIONS: He was discharged home to continue on allopurinol 300 mg twice a day, apixaban 5 mg daily, clonazepam 2 mg p.o. b.i.d.; doxepin 50 mg, he takes 2 capsules at bedtime; fenofibrate 200 mg daily, furosemide 20 mg p.o. weekly, indomethacin 25 mg p.o. p.r.n., Namenda 10 mg twice a day, metoprolol 25 mg twice a day, oxcarbazepine for Trileptal 600 mg twice a day, simvastatin 40 mg at bedtime and sulindac 200 mg p.o. b.i.d. after meals as needed. FINAL DISCHARGE DIAGNOSES: 1. Syncopal and altered mental status, resolved. 2. Acute kidney injury, resolved. His creatinine came down from 1.8 to 1.1. 3. Other medical problems include hypertension, hyperlipidemia, chronic kidney disease, atrial fibrillation, morbid obesity, obstructive sleep apnea, anxiety, depression, and posttraumatic stress disorder. DONALDO OTOOLE MD DR: DIGNA/nikolay JOB#: [id number] / [id number]
--- NOTE | 2017-10-16 00:35 | PN ---
DATE: 10/15/2017 SUBJECTIVE: The patient denies any new medical neurological complaints. He denies chest pain, shortness of breath or palpitation, dysarthria, dysphagia or dizziness. OBJECTIVE: GENERAL: Obese male, not in acute distress. VITAL SIGNS: Blood pressure 166/81, respiratory rate 24, pulse is 66 regular, temperature is 99.7, oxygen saturation is 98% on 2 liters by nasal cannula. HEENT: Normocephalic, atraumatic, otherwise, unremarkable. NECK: Supple. Negative for carotid bruit, lymphadenopathy or thyromegaly. LUNGS: Clear to A and P. CARDIOVASCULAR: Regular rate and rhythm, normal S1, S2. There is no S3, S4, or murmur. ABDOMEN: Soft. Bowel sounds positive. EXTREMITIES: Negative for cyanosis, clubbing or pitting edema. NEUROLOGIC: Normal mental status and intact cranial nerves. There is no evidence of focal motor or sensory deficit. Deep tendon reflexes are symmetric and hypoactive with absent Achilles responses. Gait and coordination are normal. LABORATORY DATA: CBC revealed white blood cells of 3.4 thousand, hemoglobin 14.1, hematocrit 41.1, platelet count 121,000. Chemistry revealed sodium of 141, potassium 3.1, chloride 105, CO2 of 31, BUN 14, creatinine 1.1, glucose 108, calcium is 8.3. ALT is elevated at 65.5 with ammonia level of 32 and normal troponin level. DIAGNOSTIC DATA: Carotid Doppler study revealed no evidence of significant internal carotid artery stenosis. IMPRESSION: 1. Syncope. 2. Remote possibility of seizure. 3. History of paroxysmal atrial fibrillations. 4. Hypertension, mild dementia, hyperlipidemia, mood disorders and gout. RECOMMENDATIONS: 1. Continue with current management initiated by Dr. Price. 2. We will arrange for EEG on an outpatient basis. M Laurence CASTILLO MD DR: RITA/nikolay JOB#: [id number] / [id number]
== END 2017-10-15 16:15 | disposition home or self-care (01) | DRG 682 ==
LOC: ER 23:14 → 1 SOUTH 10-14 01:24
PROVIDERS: ADMIT Internal Medicine; ATTEND Internal Medicine
DX: N17.9 Acute kidney failure, unspecified (principal); G92 Toxic encephalopathy; D69.3 Immune thrombocytopenic purpura; I13.0 Hypertensive heart and chronic kidney disease with heart failure and stage 1 through stage 4 chronic kidney disease, or unspecified chronic kidney disease; I50.32 Chronic diastolic (congestive) heart failure; E87.6 Hypokalemia; D69.59 Other secondary thrombocytopenia; E66.01 Morbid (severe) obesity due to excess calories; E78.5 Hyperlipidemia, unspecified; E86.0 Dehydration; F03.90 Unspecified dementia, unspecified severity, without behavioral disturbance, psychotic disturbance, mood disturbance, and anxiety; F32.9 Major depressive disorder, single episode, unspecified; F43.10 Post-traumatic stress disorder, unspecified; G47.33 Obstructive sleep apnea (adult) (pediatric); K21.9 Gastro-esophageal reflux disease without esophagitis; M19.90 Unspecified osteoarthritis, unspecified site; I95.9 Hypotension, unspecified; H90.5 Unspecified sensorineural hearing loss; I48.0 Paroxysmal atrial fibrillation; M10.9 Gout, unspecified; N18.9 Chronic kidney disease, unspecified; Z87.891 Personal history of nicotine dependence; Z98.41 Cataract extraction status, right eye; Z98.42 Cataract extraction status, left eye; Z90.49 Acquired absence of other specified parts of digestive tract; Z81.1 Family history of alcohol abuse and dependence; Z68.37 Body mass index [BMI] 37.0-37.9, adult
CPT/HCPCS: 36415; 70450; 71045; 80048; 80053; 80307; 81001; 82140; 82553; 83605; 83735; 83880; 84484; 84550; 85025; 85610; 85651; 85730; 93005; 93880; 99285-25; G0479

== ENCOUNTER → 2020-06-05 | Emergency (ER) | payer MEDICARE, OTHER ==
[~2020-06-05] VITALS: Ht 170.2 cm; Wt 107.1 kg
[~2020-06-05] MED LIST: ALLO300T PO; APIX5TAB3 PO; CLON2TAB9 PO; DOXE50CA PO; FAMOTIDINE 20 MG/2 ML VIAL IVP ONE; FENO200C PO; FURO20TA3 PO; INDO25CA21 PO; IV NORMAL SALINE 1,000ML 1,000 ML IV ONE; IV RINGERS SOLUTION,LACTATED 1,000 ML IV SCH; MEMA10TA PO; METO25TA4 PO; METO50TA6 PO; ONDANSETRON PF 4 MG/2 ML VIAL. IVP ONE; OXCA300T19 PO; PANTOPRAZOLE IV 40 MG VIAL. IVP SCH; SIMV40TA18 PO; SULI200T2 PO
--- NOTE | 2020-06-05 20:27 | PHYS DOC ---
Past History Past Medical History: Anxiety, Dementia, Depression, Hypertension, Other Past Surgical History: Other Alcohol Use: None Drug Use: None General Adult HPI: HPI: "... I had a colon scope at [place] on sunday... and the removed some polpys... but I started back on my Eliquis.. but ton I started having bright red blood....out my rectum....".. " I didnt trust going back to [place] ton..they never admit you at night anyway..." Patient is a 70 year old male [place] pt. who presents with above hx and complaints of rectal bleeding after colonscopic eval . on sunday. Patient states several polyps removed during a colonoscopy scopic evaluation. Patient has bright red blood per rectum and hypotension. Patient resumed his Eliquis which he takes for his A. fib yesterday. Patient denies any previous history of GI bleed. Patient hypotensive with blood pressure 9451. Patient normally hypertensive. Patient denies any recent travel. Patient denies any specific ill contacts. Patient denies any trauma. Has past history of atrial fibrillation, hypertension, hyperlipidemia,bradycardia, chronic renal disease, morbid o besity, obstructive sleep apnea and uses CPAP, anxiety, depression, posttraumatic stress disorder, severe sensory neural deafness, bilateral contracts, TIA, patient's recent Covid testing has been negative. Patient has completed both Covid vaccinations. Patient has previous heavy smoking history but has not smoked for approximately 4 years. Has not consumed alcohol for the last 4 years. 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 Then completed 22 years at the [employer]. Patient recently moved to the [facility] from [facility]. Review of Systems: Review of Systems: Constitutional: Denies fever or chills Eyes: Denies change in visual acuity HENT: Denies nasal congestion or sore throat Respiratory: Denies cough or shortness of breath Cardiovascular: Denies chest pain or edema GI: Complains of abdominal discomfort, nausea. Denies, vomiting.., Complains of bloody diarrhea : Denies dysuria Musculoskeletal: Denies back pain or joint pain Integument: Denies rash Neurologic: Denies headache, focal weakness or sensory changes Endocrine: Denies polyuria or polydipsia Lymphatic: Denies swollen glands Psychiatric: Denies depression or anxiety Family History: Family History: Noncontributory to presentation. 2 brothers and 1 sister older brother of alcoholism at age 38. Cause of parents unknown. Current Medications: Current Meds: See nursing for home meds Allergies: Allergies: Allergies Coded Allergies Type Severity Reaction Last Updated Verified No Known Drug Allergies 10/14/17 No Physical Exam: PE: Constitutional: in acute distress, non-toxic appearance. [] HENT: Normocephalic, atraumatic, bilateral external ears normal, oropharynx moist, no oral exudates, nose normal. [] Eyes: PERRLA, EOMI, conjunctiva pale, no discharge. [] Neck: Normal range of motion, no tenderness, supple, no stridor. [] Cardiovascular: Bradycardia heart rate regular rhythm, no murmur, PMI to the left Lungs & Thorax: Bilateral breath sounds equal apex with few scattered wheezes on auscultation [] Abdomen: Bowel sounds hyperactive, soft, mild generalized tenderness, no masses, no pulsatile masses. Romario bloody red diarrhea. Mild rebound to epigastric and lower abdomen Skin: Warm, dry, no erythema, no rash. Poor turgor. Pale Back: No tenderness, no CVA tenderness. [] Extremities: No tenderness, no cyanosis, no clubbing, ROM intact, no edema. [] No psoas sign. Neurologic: Alert and oriented X 3, moves all extremities on request, has distal sensory, marked hearing deficits, no focal deficits noted. [] Psychologic: Affect anxious,, judgement normal, mood normal. [] EKG: EKG: My interpretation EKG shows a sinus rhythm at 64 bpm. There is a right bundle branch block. No findings acute STEMI of contralateral changes. [] Radiology/Procedures: Radiology/Procedures: [][address] [address] IMAGING REPORT Signed PATIENT: JOHN ORDONEZ ACCOUNT: [id number] : 1950 LOCATION: ER AGE: 70 SEX: M EXAM STATUS: REG ER ORD. PHYSICIAN: DAVID GARCIA MD REASON: abdomen pain PROCEDURE: ACUTE ABDOMEN SERIES Exam: Acute abdominal series INDICATION: Abdominal pain TECHNIQUE: Frontal view of chest with upright and supine views of the abdomen Comparisons: None FINDINGS: The cardiomediastinal silhouette and pulmonary vessels are within normal limits. The lung and pleural spaces are clear. Air and stool are noted throughout the colon to level the rectum in a nonobstructive bowel gas pattern. No suspicious masses or calcifications. Visual is osseous structures are unremarkable. IMPRESSION: 1. No acute cardiopulmonary process. 2. Nonobstructive bowel gas pattern. Electronically signed by: Saad Carr MD (06/05/2020 9:46 PM) LOCATED WITHIN [facility] DICTATED AND SIGNED BY: SAAD CARR MD DATE: 06/05/202140 CC: DAVID GARCIA MD; PCP,NO ~MTH0 0 Heart Score: C/O Chest Pain: N/A HEART Score for Chest Pain: HEART Score for Chest Pain Response (Comments) Value History Moderately Suspicious 1 ECG Nonspecific Repolarizatio 1 Age > 65 2 Risk Factors 1 or 2 Risk Factors 1 Troponin < Normal Limit 0 Total 5 Risk Factors: Risk Factors: DM, Current or recent (<one month) smoker, HTN, HLP, family history of CAD, obesity. Risk Scores: Score 0 - 3: 2.5% MACE over next 6 weeks - Discharge Home Score 4 - 6: 20.3% MACE over next 6 weeks - Admit for Clinical Observation Score 7 - 10: 72.7% MACE over next 6 weeks - Early Invasive Strategies Course & Med Decision Making: Course & Med Decision Making Pertinent Labs and Imaging studies reviewed. (See chart for details) Discussed presentation, testing and tx. plan with Dr. Price. Advised to transfer to [facility] to his service. Impression; 1. GI Bleed 2. Hypotension 3. Hemoglobin 11.7 4. Elevated Creat. 1.7 5, Diabetes = gluc 150 [] Dragon Disclaimer: Dragon Disclaimer: This electronic medical record was generated, in whole or in part, using a voice recognition dictation system. Departure Departure: Referrals: PCP,ANDREE (PCP) Rodolfo Disclaimer This chart was dictated in whole or in part using Voice Recognition software in a busy, high-work load, and often noisy Emergency Department environment. It may contain unintended and wholly unrecognized errors or omissions. Dragon Disclaimer This chart was dictated in whole or in part using Voice Recognition software in a busy, high-work load, and often noisy Emergency Department environment. It may contain unintended and wholly unrecognized errors or omissions. Dragon Disclaimer This chart was dictated in whole or in part using Voice Recognition software in a busy, high-work load, and often noisy Emergency Department environment. It may contain unintended and wholly unrecognized errors or omissions. Dragon Disclaimer This chart was dictated in whole or in part using Voice Recognition software in a busy, high-work load, and often noisy Emergency Department environment. It may contain unintended and wholly unrecognized errors or omissions. Dragon Disclaimer This chart was dictated in whole or in part using Voice Recognition software in a busy, high-work load, and often noisy Emergency Department environment. It may contain unintended and wholly unrecognized errors or omissions. DAVID GARCIA MD Jun 05, 2020 20:27
[2020-06-05 21:15] LABS: BASO % 0 % (0-3); EOS # 0.1 x10^3/uL (0.0-0.7); EOS % 1 % (0-3); HEMATOCRIT 34.8 % (39.0-53.0); HEMOGLOBIN 11.7 g/dL (13.0-17.5); LYMPH # 2.5 x10^3/uL (1.0-4.8); LYMPH % 27 % (24-48); MEAN CORPUSCULAR HEMOGLOBIN 31 pg (25-35); MEAN CORPUSCULAR HGB CONC 34 g/dL (31-37); MEAN CORPUSCULAR VOLUME 93 fL (79-100); MONO # 0.8 x10^3/uL (0.0-1.1); MONO % 8 % (0-9); NEUT % 64 % (31-73); PLATELET COUNT 159 x10^3/uL (140-400); RED BLOOD COUNT 3.76 x10^6/uL (4.30-5.70); RED CELL DISTRIBUTION WIDTH 13.9 % (11.5-14.5); WHITE BLOOD COUNT 9.4 x10^3/uL (4.0-11.0)
[2020-06-05 21:20] LABS: CALCIUM 8.5 mg/dL (8.5-10.1); CREATININE 1.7 mg/dL (0.7-1.3); GFR 39.8; POTASSIUM 3.7 mmol/L (3.5-5.1)
[2020-06-05 21:26] LABS: ALBUMIN 3.3 g/dL (3.4-5.0); DIRECT BILIRUBIN 0.1 mg/dL (0.0-0.2); TOTAL BILIRUBIN 0.3 mg/dL (0.2-1.0); TOTAL PROTEIN 5.7 g/dL (6.4-8.2)
--- NOTE | 2020-06-05 21:48 | RAD ---
Exam: Acute abdominal series INDICATION: Abdominal pain TECHNIQUE: Frontal view of chest with upright and supine views of the abdomen Comparisons: None FINDINGS: The cardiomediastinal silhouette and pulmonary vessels are within normal limits. The lung and pleural spaces are clear. Air and stool are noted throughout the colon to level the rectum in a nonobstructive bowel gas patter n. No suspicious masses or calcifications. Visual is osseous structures are unremarkable. IMPRESSION: 1. No acute cardiopulmonary process. 2. Nonobstructive bowel gas pattern. Electronically signed by: Saad Griffin MD (06/05/2020 9:46 PM) [facility]
--- NOTE | 2020-06-05 22:08 | EKG ---
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
[2020-06-05 22:32] VITALS: BP 114/55
== END | disposition short-term general hospital (02) ==
LOC: ER 20:20
DX: K92.2 Gastrointestinal hemorrhage, unspecified (principal); I95.9 Hypotension, unspecified; E11.9 Type 2 diabetes mellitus without complications; R79.89 Other specified abnormal findings of blood chemistry; I10 Essential (primary) hypertension; F03.90 Unspecified dementia, unspecified severity, without behavioral disturbance, psychotic disturbance, mood disturbance, and anxiety
CPT/HCPCS: 36415; 74022; 80048; 80076; 82550; 83690; 84484; 85025; 85610; 85730; 86850; 86900; 86901; 87426; 93005; 96361; 96374; 96375; 99285; J2405; J3490; J7030; J7120; U0003